=== PATIENT | male | born 1975 | race Caucasian/White ===

== ENCOUNTER 2016-12-24 12:54 | Emergency (ER) | payer MEDICAID ==
[2016-12-24 13:22] VITALS: BP 118/68; PULSE 55; RESP 16; TEMP 96.8; O2SAT 97
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
--- NOTE | 2016-12-24 14:14 | DX ---
Right knee, 5 views. History: Knee pain. Fell running. Findings: Normal mineralization and alignment. No evidence for acute fracture or dislocation. Mild pe riarticular spurring is seen in the patella. No significant joint effusion. No evidence for periartic ular erosion or soft tissue calcification. Impression: Mild degenerative change patellofemoral compartment. Otherwise unremarkable.
== END 2016-12-24 14:27 | disposition home or self-care (01) ==
LOC: CED 12:54
DX: S81.011A Laceration without foreign body, right knee, initial encounter (principal); W19.XXXA Unspecified fall, initial encounter
CPT/HCPCS: 73564-PO; G0463-PO

== ENCOUNTER 2016-12-26 11:33 | Emergency (ER) | payer MEDICAID ==
[2016-12-26 12:01] VITALS: RESP 18; O2SAT 97
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
[2016-12-26 13:23] VITALS: BP 111/64; PULSE 82; TEMP 98.6
== END 2016-12-26 13:25 | disposition home or self-care (01) ==
LOC: CED 11:33
PROC: 0HQKXZZ Repair Right Lower Leg Skin, External Approach (ICD-10-PCS; principal; 2016-12-26)
DX: S81.011D Laceration without foreign body, right knee, subsequent encounter (principal)
CPT/HCPCS: 12001-PO; 99213-PO; G0463-PO